=== PATIENT | male | born 2000 | race Caucasian/White ===

== ENCOUNTER 2019-05-22 02:14 | Emergency (ER) | payer OTHER ==
[~2019-05-22] VITALS: Ht 177.8 cm; Wt 90.9 kg
[2019-05-22 04:11] VITALS: BP 139/71
== END 2019-05-22 04:16 | disposition home or self-care (01) ==
LOC: ER 02:14
DX: S40.811A Abrasion of right upper arm, initial encounter (principal); F12.10 Cannabis abuse, uncomplicated; V89.0XXA Person injured in unspecified motor-vehicle accident, nontraffic, initial encounter; Y93.89 Activity, other specified; Y92.89 Other specified places as the place of occurrence of the external cause; Y99.8 Other external cause status
CPT/HCPCS: 99283